=== PATIENT | female | born 1970 | race Caucasian/White ===

== ENCOUNTER 2022-11-23 10:19 | Day surgery (SDC) | payer OTHER ==
[~2022-11-23] VITALS: Ht 165.1 cm; Wt 75.7 kg
[2022-11-23] MEDS ORDERED: diphenhydrAMINE 50 MG/ML VIAL ONE (11:30)
[2022-11-23] MEDS ORDERED: LIDOCAINE 2% 100 MG/5 ML UJET TP ONE (11:31)
[2022-11-23] MEDS ORDERED: fentaNYL citrate 0.05 MG/ML VIAL ONE (11:31)
[2022-11-23] MEDS ORDERED: MIDAZOLAM 5 MG/5 ML VIAL ONE (11:31)
[2022-11-23] MEDS ORDERED: MIDAZOLAM 5 MG/5 ML VIAL IV ONE (14:40)
[2022-11-23] MEDS ORDERED: fentaNYL citrate 0.05 MG/ML VIAL IVP ONE (14:40)
== END 2022-11-23 13:10 | disposition home or self-care (01) ==
LOC: MDS 10:19 → MMU 10:24 → MDS 13:10
PROVIDERS: ATTEND Internal Medicine Gastroenterology
DX: R10.13 Epigastric pain (principal); K29.50 Unspecified chronic gastritis without bleeding; E78.5 Hyperlipidemia, unspecified; K21.9 Gastro-esophageal reflux disease without esophagitis; G47.00 Insomnia, unspecified; Z90.89 Acquired absence of other organs; Z98.890 Other specified postprocedural states; Z79.899 Other long term (current) drug therapy
CPT/HCPCS: 88305; 88312; 88313; 88342; J1200; J2250; J3010